=== PATIENT | female | born 1965 | race African-American/Black ===

== ENCOUNTER 2016-09-10 15:56 | Emergency (ER) | payer OTHER ==
[~2016-09-10] VITALS: Ht 170.2 cm; Wt 81.0 kg
[~2016-09-10 15:56] MED LIST: ALBUTEROL; AZITHROMYCIN; CARISOPRODOL; COR25; DIGL; FURO-152 PO; FUROSEMIDE; GABA-531; GABAPENTIN; HYDROCODONE; LEVO500T15 PO; LORATIDINE; POTA20TA82 PO; PROAIR; Q-TUSSIN; TRAM50TA3; WARF5TAB76; ZOLP10TA2; benazepril PO
[2016-09-10] MEDS ORDERED: SPIR25TA4 PO (16:12)
[2016-09-10] MEDS ORDERED: OPSUMIT (16:12)
[2016-09-10] MEDS ORDERED: LOSA25TA12 PO (16:12)
[2016-09-10] MEDS ORDERED: METOLAZONE (16:12)
[2016-09-10] MEDS ORDERED: BANOPHEN (16:12)
[2016-09-10 21:54] LABS: BASOPHILS % 0.6 % (0.0-2.0); EOSINOPHILS % 3.5 % (0.0-5.0); HEMATOCRIT. 32.3 % (36.0-48.0); HEMOGLOBIN. 10.6 g/dL (12.0-16.0); LYMPHOCYTES % 38.7 % (20.0-50.0); MEAN CORPUSCULAR HEMOGLOBIN 28.2 pg (28.0-32.0); MEAN CORPUSCULAR VOLUME 85.4 fL (81.0-99.0); MEAN PLATELET VOLUME 9.8 fl (7.4-10.4); MONOCYTES % 10.8 % (2.0-8.0); NEUTROPHILS % 46.4 % (40.0-76.0); PLATELET 112 x1000/uL (130-400); RED BLOOD CELL COUNT 3.78 mill/uL (4.2-5.4); RED CELL DISTRIBUTION WIDTH 14.3 % (11.6-14.6)
[2016-09-10 22:06] LABS: PARTIAL THROMBOPLASTIN TIME 45.1 sec (24.0-34.0); PROTHROMBIN TIME 50.7 sec
[2016-09-10 22:12] LABS: INR 4.8
[2016-09-11] MEDS ORDERED: HYDROCODONE/ACETAMINOPHEN 5/325MG TABLET PO ONE (00:45)
[2016-09-11 01:02] VITALS: BP 129/69
== END 2016-09-11 01:21 | disposition home or self-care (01) ==
LOC: ER 22:55
DX: M25.562 Pain in left knee (principal); Z95.0 Presence of cardiac pacemaker
CPT/HCPCS: 36415; 73562; 85025; 85610; 85730; 93971; 99285

== ENCOUNTER 2018-07-30 10:51 | Inpatient (IN) | payer OTHER ==
[~2018-07-30] VITALS: Ht 170.2 cm; Wt 84.4 kg
[~2018-07-30 10:51] MED LIST changes: +BANOPHEN; -LEVO500T15 PO; +LEVO500T2 PO; +LOSA25TA12 PO; +METOLAZONE; +OPSUMIT; +SPIR25TA6 PO
[2018-07-30] MEDS ORDERED: IPRATROPIUM BROMIDE (0.02%) 0.5MG/2.5ML NEB HHN STA (11:12)
[2018-07-30] MEDS ORDERED: METHYLPREDNISOLONE SOD SUCC 125 MG/2 ML VIAL IV STA (11:12)
[2018-07-30] MEDS ORDERED: ALBUTEROL (0.083%) 2.5MG/3ML NEB HHN STA (11:12)
[2018-07-30] MEDS ORDERED: MAGNESIUM 2 G PREMIX 50 ML IV ONE (11:15)
[2018-07-30 11:39] LABS: BASOPHILS % 0.7 % (0.0-2.0); HEMATOCRIT. 34.5 % (36.0-48.0); HEMOGLOBIN. 11.3 g/dL (12.0-16.0); MEAN CORPUSCULAR HEMOGLOBIN 28.5 pg (28.0-32.0); MEAN CORPUSCULAR VOLUME 87.1 fL (81.0-99.0); MEAN PLATELET VOLUME 9.9 fl (7.4-10.4); MONOCYTES % 12.9 % (2.0-8.0); NEUTROPHILS % 63.4 % (40.0-76.0); PLATELET 97 x1000/uL (130-400); RED BLOOD CELL COUNT 3.96 mill/uL (4.2-5.4); RED CELL DISTRIBUTION WIDTH 14.9 % (11.6-14.6)
[2018-07-30 11:44] LABS: CHLORIDE 105 mEq/L (98-107); PROTHROMBIN TIME 29.3 sec (9.6-11.0)
[2018-07-30] MEDS ORDERED: IPRATROPIUM/ALBUTEROL 0.5-3(2.5)MG/3ML NEB HHN PRN ×2 (13:00→13:30)
[2018-07-30] MEDS ORDERED: ONDANSETRON HCL 4MG/2ML INJ IV PRN (13:00)
[2018-07-30] MEDS ORDERED: FUROSEMIDE 20MG/2ML VIAL IVP ONE (13:00)
[2018-07-30] MEDS ORDERED: ACETAMINOPHEN 325MG TABLET PO PRN (13:00)
[2018-07-30] MEDS ORDERED: BUDESONIDE 0.5MG/2ML NEB HHN SCH (13:00)
[2018-07-30 14:36] LABS: CLARITY URINE CLEAR (CLEAR); COLOR URINE YELLOW (YELLOW); KETONES URINE TRACE (NEGATIVE); LEUKOCYTE ESTERASE URINE TRACE (NEGATIVE); NITRITE URINE NEGATIVE (NEGATIVE); OCCULT BLOOD URINE NEGATIVE (NEGATIVE); PROTEIN URINE TRACE (NEGATIVE); SPECIFIC GRAVITY URINE 1.018 (1.005-1.030)
[2018-07-30 15:07] LABS: *AMPHETAMINES SCREEN URINE NEGATIVE (NEGATIVE); *BARBITURATES SCREEN URINE NEGATIVE (NEGATIVE)
[2018-07-30 15:08] LABS: *BENZODIAZEPINES SCREEN URINE NEGATIVE (NEGATIVE); *COCAINE SCREEN URINE NEGATIVE (NEGATIVE); CANNABINOID URINE SCREEN NEGATIVE (NEGATIVE); METHADONE URINE SCREEN NEGATIVE (NEGATIVE); OPIATES URINE SCREEN NEGATIVE (NEGATIVE); PHENCYCLIDINE URINE SCREEN NEGATIVE (NEGATIVE)
[2018-07-30 16:45] VITALS: BP 130/61
[2018-07-30] MEDS ORDERED: HYDR-4009 PO (16:50)
[2018-07-30] MEDS ORDERED: MACI10TA2 PO (16:50)
[2018-07-30] MEDS ORDERED: METO5TAB69 PO (16:50)
[2018-07-30] MEDS ORDERED: ALBU18HF2 IH (16:52)
[2018-07-30] MEDS ORDERED: FUROSEMIDE 40MG/4ML VIAL IVP SCH (17:00)
[2018-07-30] MEDS ORDERED: CARV25TA47 PO (17:03)
[2018-07-30] MEDS ORDERED: DICL100G31 TP (17:03)
[2018-07-30] MEDS ORDERED: DIGO125T82 PO (17:03)
[2018-07-30] MEDS: GUAIFENESIN-DM 200MG-20MG/10ML UDC PO PRN (18:06)
[2018-07-30] MEDS: MONTELUKAST SODIUM 10MG TABLET PO SCH (18:06)
[2018-07-30] MEDS: FAMOTIDINE 20MG/2ML VIAL IV SCH (18:07)
[2018-07-30] MEDS: LORATADINE 10MG TABLET PO SCH (18:07)
[2018-07-30] MEDS: IPRATROPIUM/ALBUTEROL 0.5-3(2.5)MG/3ML NEB HHN SCH (20:21)
[2018-07-30 20:30] VITALS: BP 107/53
[2018-07-30] MEDS ORDERED: WARFARIN SODIUM 3MG TABLET PO NR (20:44)
[2018-07-30] MEDS: METHYLPREDNISOLONE SOD SUCC 40 MG/ML VIAL IV SCH (20:51)
[2018-07-31 01:00] VITALS: BP 114/49
[2018-07-31] MEDS: GUAIFENESIN-DM 200MG-20MG/10ML UDC PO PRN ×2 (01:20→20:28)
[2018-07-31] MEDS: IPRATROPIUM/ALBUTEROL 0.5-3(2.5)MG/3ML NEB HHN SCH ×6 (01:44→21:52)
[2018-07-31 05:00] VITALS: BP 105/47
[2018-07-31] MEDS: METHYLPREDNISOLONE SOD SUCC 40 MG/ML VIAL IV SCH ×3 (05:10→20:28)
[2018-07-31] MEDS: ACETYLCYSTEINE 100MG/ML 10% VIAL 4ML INH SCH ×3 (05:53→16:46)
[2018-07-31 06:40] LABS: INR 3.5; PROTHROMBIN TIME 34.2 sec (9.6-11.0)
[2018-07-31 06:53] LABS: HEMATOCRIT. 34.9 % (36.0-48.0); HEMOGLOBIN. 11.5 g/dL (12.0-16.0); MEAN CORPUSCULAR HEMOGLOBIN 28.5 pg (28.0-32.0); MEAN CORPUSCULAR VOLUME 86.6 fL (81.0-99.0); MEAN PLATELET VOLUME 10.4 fl (7.4-10.4); PLATELET 103 x1000/uL (130-400); RED BLOOD CELL COUNT 4.03 mill/uL (4.2-5.4); RED CELL DISTRIBUTION WIDTH 14.8 % (11.6-14.6)
[2018-07-31 08:00] VITALS: BP 102/47
[2018-07-31] MEDS: FAMOTIDINE 20MG/2ML VIAL IV SCH (09:00)
[2018-07-31] MEDS: LORATADINE 10MG TABLET PO SCH (09:00)
[2018-07-31] MEDS: LOSARTAN POTASSIUM 25 MG TABLET PO SCH (09:00)
[2018-07-31 12:00] VITALS: BP 107/51
[2018-07-31] MEDS ORDERED: MACITENTAN 10 MG PO SCH (14:00)
[2018-07-31] MEDS: AZITHROMYCIN 500 MG TABLET PO SCH (14:58)
[2018-07-31] MEDS: SPIRONOLACTONE 25MG TABLET PO SCH (14:58)
[2018-07-31 16:00] VITALS: BP 111/54
[2018-07-31] MEDS ORDERED: MEDICATION NOT ON FORMULARY EA (Diclofenac Sodium 100 GM) TP SCH (17:00)
[2018-07-31] MEDS: MONTELUKAST SODIUM 10MG TABLET PO SCH (17:22)
[2018-07-31] MEDS: DIGOXIN 125MCG TABLET PO SCH (17:22)
[2018-07-31] MEDS ORDERED: WARFARIN SODIUM 7.5MG TABLET PO SCH (18:00)
[2018-07-31] MEDS ORDERED: DIPHENHYDRAMINE 50MG/ML VIAL IV NR (18:16)
[2018-07-31 18:21] LABS: PLATELET ESTIMATE DECREASED
[2018-07-31] MEDS ORDERED: DIPHENHYDRAMINE 50MG CAPSULE PO PRN (18:30)
[2018-07-31 19:44] VITALS: BP 110/53
[2018-08-01] VITALS: BP 112/55
[2018-08-01] MEDS: ACETYLCYSTEINE 100MG/ML 10% VIAL 4ML INH SCH ×3 (01:18→16:52)
[2018-08-01] MEDS: IPRATROPIUM/ALBUTEROL 0.5-3(2.5)MG/3ML NEB HHN SCH ×6 (01:18→21:14)
[2018-08-01 04:00] VITALS: BP 122/60
[2018-08-01 06:15] LABS: HEMATOCRIT. 33.4 % (36.0-48.0); MEAN CORPUSCULAR HEMOGLOBIN 28.6 pg (28.0-32.0); MEAN CORPUSCULAR VOLUME 86.6 fL (81.0-99.0); MEAN PLATELET VOLUME 10.4 fl (7.4-10.4); PLATELET 100 x1000/uL (130-400); RED BLOOD CELL COUNT 3.85 mill/uL (4.2-5.4); RED CELL DISTRIBUTION WIDTH 14.4 % (11.6-14.6)
[2018-08-01 06:28] LABS: PROTHROMBIN TIME 50.7 sec (9.6-11.0)
[2018-08-01 06:42] LABS: INR 5.3
[2018-08-01] MEDS: METHYLPREDNISOLONE SOD SUCC 40 MG/ML VIAL IV SCH ×2 (06:58→14:27)
[2018-08-01 07:15] LABS: DIGOXIN 0.8 ng/mL (0.9-2.0)
[2018-08-01 08:00] VITALS: BP 103/51
[2018-08-01] MEDS: FAMOTIDINE 20MG/2ML VIAL IV SCH (08:14)
[2018-08-01] MEDS: AZITHROMYCIN 500 MG TABLET PO SCH (08:14)
[2018-08-01] MEDS: SPIRONOLACTONE 25MG TABLET PO SCH (08:14)
[2018-08-01] MEDS: GUAIFENESIN-DM 200MG-20MG/10ML UDC PO PRN ×2 (08:14→22:22)
[2018-08-01] MEDS: LORATADINE 10MG TABLET PO SCH (08:14)
[2018-08-01] MEDS: LOSARTAN POTASSIUM 25 MG TABLET PO SCH (08:15)
[2018-08-01 10:40] LABS: PLATELET ESTIMATE DECREASED
[2018-08-01] MEDS: POTASSIUM CHLORIDE 20MEQ TABLET SR PO SCH (11:45)
[2018-08-01] MEDS: FUROSEMIDE 40MG/4ML VIAL IVP SCH (11:46)
[2018-08-01 12:00] VITALS: BP 124/68
[2018-08-01] MEDS: DIGOXIN 125MCG TABLET PO SCH (17:46)
[2018-08-01 20:00] VITALS: BP 120/60
[2018-08-02] VITALS: BP 116/56
[2018-08-02] MEDS: ACETYLCYSTEINE 100MG/ML 10% VIAL 4ML INH SCH ×2 (00:36→15:20)
[2018-08-02] MEDS: IPRATROPIUM/ALBUTEROL 0.5-3(2.5)MG/3ML NEB HHN SCH ×5 (00:36→15:20)
[2018-08-02 04:00] VITALS: BP 124/51
[2018-08-02 07:37] LABS: PROTHROMBIN TIME 50.9 sec (9.6-11.0)
[2018-08-02 07:38] LABS: HEMATOCRIT. 32.3 % (36.0-48.0); HEMOGLOBIN. 10.9 g/dL (12.0-16.0); MEAN CORPUSCULAR HEMOGLOBIN 28.8 pg (28.0-32.0); MEAN CORPUSCULAR VOLUME 85.5 fL (81.0-99.0); MEAN PLATELET VOLUME 10.5 fl (7.4-10.4); PLATELET 106 x1000/uL (130-400); RED BLOOD CELL COUNT 3.78 mill/uL (4.2-5.4); RED CELL DISTRIBUTION WIDTH 14.5 % (11.6-14.6)
[2018-08-02 07:45] LABS: INR 5.3
[2018-08-02 08:00] VITALS: BP 129/59
[2018-08-02] MEDS ORDERED: PREDNISONE 20MG TABLET PO SCH (09:00)
[2018-08-02] MEDS ORDERED: BUDESONIDE 0.5MG/2ML NEB HHN SCH (10:00)
[2018-08-02] MEDS: GUAIFENESIN-DM 200MG-20MG/10ML UDC PO PRN ×2 (10:35→18:07)
[2018-08-02] MEDS: FAMOTIDINE 20MG/2ML VIAL IV SCH (10:39)
[2018-08-02] MEDS: AZITHROMYCIN 500 MG TABLET PO SCH (10:39)
[2018-08-02] MEDS: POTASSIUM CHLORIDE 20MEQ TABLET SR PO SCH (10:39)
[2018-08-02] MEDS: FUROSEMIDE 40MG/4ML VIAL IVP SCH (10:41)
[2018-08-02] MEDS: SPIRONOLACTONE 25MG TABLET PO SCH (10:41)
[2018-08-02] MEDS: LOSARTAN POTASSIUM 25 MG TABLET PO SCH (10:43)
[2018-08-02] MEDS: LORATADINE 10MG TABLET PO SCH (10:43)
[2018-08-02 12:00] VITALS: BP 114/55
[2018-08-02 14:01] VITALS: BP 114/55
[2018-08-02 16:00] VITALS: BP 123/63
[2018-08-02] MEDS: DIGOXIN 125MCG TABLET PO SCH (18:07)
[2018-08-02 19:23] LABS: PLATELET ESTIMATE DECREASED
== END 2018-08-02 20:16 | disposition home or self-care (01) | DRG 133 ==
LOC: ER 10:51 → 7WST 12:41 → EDBEDREQTM 12:45 → EDBEDREQ 12:45 → ENRESERV 13:07
PROVIDERS: ADMIT Internal Medicine; ATTEND Internal Medicine
DX: J96.00 Acute respiratory failure, unspecified whether with hypoxia or hypercapnia (principal); I50.23 Acute on chronic systolic (congestive) heart failure; D69.6 Thrombocytopenia, unspecified; D68.9 Coagulation defect, unspecified; I42.9 Cardiomyopathy, unspecified; I27.20 Pulmonary hypertension, unspecified; I11.0 Hypertensive heart disease with heart failure; J45.901 Unspecified asthma with (acute) exacerbation; D64.9 Anemia, unspecified; I48.91 Unspecified atrial fibrillation; K76.0 Fatty (change of) liver, not elsewhere classified; Z95.1 Presence of aortocoronary bypass graft; Z95.2 Presence of prosthetic heart valve; Z95.810 Presence of automatic (implantable) cardiac defibrillator
CPT/HCPCS: 36415; 71045; 76700; 80048; 80162; 80305; 83605; 83880; 84145; 84484; 87070; 87804; 93005; 93306; 93970; 94640; 99285; J1200; J1940; J2920; J2930; J3475; J3490; J7512; J7608; J7611; J7620; J7626

== ENCOUNTER 2018-10-18 08:33 | Inpatient (IN) | payer OTHER ==
[~2018-10-18] VITALS: Ht 170.2 cm; Wt 87.3 kg
[~2018-10-18 08:33] MED LIST changes: +ALBU18HF2 IH; -ALBUTEROL; -AZITHROMYCIN; -BANOPHEN; -CARISOPRODOL; +CARV25TA47 PO; -COR25; +DICL100G31 TP; -DIGL; +DIGO125T82 PO; -FUROSEMIDE; -GABA-531; -GABAPENTIN; +HYDR-4009 PO; -HYDROCODONE; -LEVO500T2 PO; -LORATIDINE; -LOSA25TA12 PO; +LOSA25TA26 PO; +MACI10TA2 PO; +METO5TAB69 PO; -METOLAZONE; -OPSUMIT; -PROAIR; -Q-TUSSIN; -TRAM50TA3; -ZOLP10TA2; -benazepril PO
[2018-10-18 09:33] LABS: BASOPHILS % 0.6 % (0.0-2.0); EOSINOPHILS % 1.8 % (0.0-5.0); HEMATOCRIT. 31.8 % (36.0-48.0); HEMOGLOBIN. 10.5 g/dL (12.0-16.0); LYMPHOCYTES % 26.4 % (20.0-50.0); MEAN CORPUSCULAR HEMOGLOBIN 28.4 pg (28.0-32.0); MEAN CORPUSCULAR VOLUME 85.7 fL (81.0-99.0); MEAN PLATELET VOLUME 10.2 fl (7.4-10.4); MONOCYTES % 10.8 % (2.0-8.0); NEUTROPHILS % 60.4 % (40.0-76.0); PLATELET 104 x1000/uL (130-400); RED CELL DISTRIBUTION WIDTH 15.1 % (11.6-14.6)
[2018-10-18 09:34] LABS: CHLORIDE 104 mEq/L (98-107)
[2018-10-18] MEDS ORDERED: MAGNESIUM/ALUMINUM HYDROXIDE/SIMETHICONE 30ML UDC PO PRN (10:30)
[2018-10-18] MEDS ORDERED: DOCUSATE SODIUM 100MG CAPSULE PO PRN (10:30)
[2018-10-18] MEDS ORDERED: GUAIFENESIN 200MG/10ML SUGAR FREE UDC PO PRN (10:30)
[2018-10-18] MEDS ORDERED: IPRATROPIUM/ALBUTEROL 0.5-3(2.5)MG/3ML NEB INH PRN (10:30)
[2018-10-18] MEDS ORDERED: ENOXAPARIN 40MG/0.4ML SYR SUBCUT SCH (10:30)
[2018-10-18] MEDS ORDERED: DIPHENHYDRAMINE 50MG/ML VIAL IV PRN (10:30)
[2018-10-18] MEDS ORDERED: HYDROCODONE/ACETAMINOPHEN 5/325MG TABLET PO PRN (10:30)
[2018-10-18] MEDS ORDERED: CLONIDINE 0.1MG TABLET PO PRN (10:30)
[2018-10-18] MEDS ORDERED: ONDANSETRON HCL 4MG/2ML INJ IV PRN (10:30)
[2018-10-18] MEDS ORDERED: ENOXAPARIN 40MG/0.4ML SYR SUBCUT NR (11:00)
[2018-10-18 11:11] LABS: INR 2.8; PROTHROMBIN TIME 27.3 sec (9.6-11.0)
[2018-10-18 11:15] LABS: PHOSPHORUS 3.1 mg/dL (2.5-4.9)
[2018-10-18 13:44] VITALS: BP 121/58
[2018-10-18 14:00] VITALS: BP 121/58
[2018-10-18] MEDS ORDERED: PNV1TABL50 MT (15:47)
[2018-10-18 16:30] VITALS: BP 107/42
[2018-10-18] MEDS: POTASSIUM CHLORIDE 20MEQ TABLET SR PO SCH (17:16)
[2018-10-18] MEDS: ACETAMINOPHEN 325MG TABLET PO PRN (17:17)
[2018-10-18] MEDS ORDERED: WARFARIN SODIUM 2MG TABLET PO SCH (18:00)
[2018-10-18] MEDS ORDERED: WARFARIN SODIUM 5MG TABLET PO SCH (18:00)
[2018-10-18 20:00] VITALS: BP 101/45
[2018-10-18] MEDS: CARVEDILOL 12.5MG TABLET PO SCH (21:00)
[2018-10-18 21:27] LABS: CREATINE KINASE MB FRACTION 1.6 ng/mL (0.5-3.6)
[2018-10-18 21:46] LABS: DIGOXIN 0.9 ng/mL (0.9-2.0)
[2018-10-19] VITALS: BP 104/50
[2018-10-19 04:00] VITALS: BP 113/46
[2018-10-19 09:00] LABS: INR 2.7; PROTHROMBIN TIME 26.4 sec (9.6-11.0)
[2018-10-19] MEDS: LOSARTAN POTASSIUM 25 MG TABLET PO SCH (09:00)
[2018-10-19] MEDS: CARVEDILOL 12.5MG TABLET PO SCH ×2 (09:00→21:15)
[2018-10-19] MEDS ORDERED: ENOXAPARIN 40MG/0.4ML SYR SUBCUT SCH ×2 (09:00)
[2018-10-19 09:02] LABS: BASOPHILS % 0.7 % (0.0-2.0); EOSINOPHILS % 2.6 % (0.0-5.0); HEMOGLOBIN. 10.2 g/dL (12.0-16.0); LYMPHOCYTES % 30.4 % (20.0-50.0); MEAN CORPUSCULAR HEMOGLOBIN 28.3 pg (28.0-32.0); MONOCYTES % 13.5 % (2.0-8.0); NEUTROPHILS % 52.8 % (40.0-76.0); PLATELET 99 x1000/uL (130-400); RED BLOOD CELL COUNT 3.61 mill/uL (4.2-5.4); RED CELL DISTRIBUTION WIDTH 14.9 % (11.6-14.6)
[2018-10-19 09:03] LABS: CHLORIDE 106 mEq/L (98-107)
[2018-10-19 09:14] LABS: LDL CHOLESTEROL 72 mg/dL (5-100)
[2018-10-19 09:15] LABS: CREATINE KINASE 91 IU/L (26-192); CREATINE KINASE MB FRACTION < 1.0 ng/mL (0.5-3.6)
[2018-10-19 09:17] LABS: HDL CHOLESTEROL 61 mg/dL (40-59)
[2018-10-19] MEDS: SPIRONOLACTONE 25MG TABLET PO SCH (09:33)
[2018-10-19] MEDS: POTASSIUM CHLORIDE 20MEQ TABLET SR PO SCH (09:33)
[2018-10-19] MEDS ORDERED: WARFARIN SODIUM 5MG TABLET PO SCH (18:00)
[2018-10-19] MEDS ORDERED: WARFARIN SODIUM 2MG TABLET PO SCH (18:00)
[2018-10-19 20:00] VITALS: BP 117/62
[2018-10-19] MEDS: SOTALOL HCL 80MG TABLET PO SCH (21:14)
[2018-10-20] VITALS (7 sets, daily range): BP systolic 101–118; BP diastolic 48–62
[2018-10-20] MEDS: ACETAMINOPHEN 325MG TABLET PO PRN ×2 (03:26→11:31)
[2018-10-20 07:59] LABS: INR 2.6; PROTHROMBIN TIME 25.4 sec (9.6-11.0)
[2018-10-20] MEDS: CARVEDILOL 12.5MG TABLET PO SCH ×2 (09:08→21:17)
[2018-10-20] MEDS: POTASSIUM CHLORIDE 20MEQ TABLET SR PO SCH (09:08)
[2018-10-20] MEDS: SPIRONOLACTONE 25MG TABLET PO SCH (09:08)
[2018-10-20] MEDS: SOTALOL HCL 80MG TABLET PO SCH ×2 (09:09→21:17)
[2018-10-20] MEDS: LOSARTAN POTASSIUM 25 MG TABLET PO SCH (09:09)
[2018-10-20] MEDS ORDERED: WARFARIN SODIUM 5MG TABLET PO SCH (18:00)
[2018-10-20] MEDS ORDERED: WARFARIN SODIUM 2MG TABLET PO SCH (18:00)
[2018-10-21] VITALS: BP 111/62
[2018-10-21 04:00] VITALS: BP 122/59
[2018-10-21 07:54] LABS: INR 2.5; PROTHROMBIN TIME 24.8 sec (9.6-11.0)
[2018-10-21 08:00] VITALS: BP 106/53
[2018-10-21 08:00] LABS: BASOPHILS % 0.3 % (0.0-2.0); EOSINOPHILS % 2.5 % (0.0-5.0); HEMATOCRIT. 29.7 % (36.0-48.0); HEMOGLOBIN. 9.9 g/dL (12.0-16.0); MEAN CORPUSCULAR HEMOGLOBIN 28.6 pg (28.0-32.0); MEAN CORPUSCULAR VOLUME 85.5 fL (81.0-99.0); MEAN PLATELET VOLUME 10.3 fl (7.4-10.4); MONOCYTES % 13.2 % (2.0-8.0); PLATELET 91 x1000/uL (130-400); RED BLOOD CELL COUNT 3.47 mill/uL (4.2-5.4); RED CELL DISTRIBUTION WIDTH 14.9 % (11.6-14.6)
[2018-10-21 08:23] LABS: CHLORIDE 105 mEq/L (98-107)
[2018-10-21] MEDS: CARVEDILOL 12.5MG TABLET PO SCH ×2 (09:00→21:34)
[2018-10-21] MEDS: LOSARTAN POTASSIUM 25 MG TABLET PO SCH (09:00)
[2018-10-21] MEDS: SPIRONOLACTONE 25MG TABLET PO SCH (09:59)
[2018-10-21] MEDS: POTASSIUM CHLORIDE 20MEQ TABLET SR PO SCH (09:59)
[2018-10-21] MEDS: SOTALOL HCL 80MG TABLET PO SCH ×2 (10:01→21:34)
[2018-10-21 12:00] VITALS: BP 116/65
[2018-10-21] MEDS ORDERED: ACET-2708 PO (14:14)
[2018-10-21] MEDS ORDERED: CALC-1098 PO (14:14)
[2018-10-21] MEDS ORDERED: ASCO500C15 PO (14:14)
[2018-10-21] MEDS ORDERED: WARF7.5T22 PO (14:15)
[2018-10-21 16:00] VITALS: BP 114/54
[2018-10-21] MEDS ORDERED: WARFARIN SODIUM 3MG TABLET PO SCH (18:00)
[2018-10-21 22:00] VITALS: BP 120/75
[2018-10-22 08:00] VITALS: BP 143/56
[2018-10-22] MEDS: CARVEDILOL 12.5MG TABLET PO SCH ×2 (08:24→21:15)
[2018-10-22] MEDS: SOTALOL HCL 80MG TABLET PO SCH ×2 (08:24→21:15)
[2018-10-22] MEDS: SPIRONOLACTONE 25MG TABLET PO SCH (08:25)
[2018-10-22] MEDS: LOSARTAN POTASSIUM 25 MG TABLET PO SCH (08:25)
[2018-10-22] MEDS: POTASSIUM CHLORIDE 20MEQ TABLET SR PO SCH (08:25)
[2018-10-22 09:35] LABS: BASOPHILS % 0.4 % (0.0-2.0); EOSINOPHILS % 2.2 % (0.0-5.0); HEMATOCRIT. 31.2 % (36.0-48.0); HEMOGLOBIN. 10.4 g/dL (12.0-16.0); LYMPHOCYTES % 24.4 % (20.0-50.0); MEAN CORPUSCULAR HEMOGLOBIN 28.7 pg (28.0-32.0); MEAN CORPUSCULAR VOLUME 85.9 fL (81.0-99.0); MEAN PLATELET VOLUME 10.5 fl (7.4-10.4); MONOCYTES % 12.2 % (2.0-8.0); NEUTROPHILS % 60.8 % (40.0-76.0); PLATELET 90 x1000/uL (130-400); RED BLOOD CELL COUNT 3.63 mill/uL (4.2-5.4); RED CELL DISTRIBUTION WIDTH 14.9 % (11.6-14.6)
[2018-10-22 09:52] LABS: INR 2.3; PROTHROMBIN TIME 23.1 sec (9.6-11.0)
[2018-10-22 10:02] LABS: CHLORIDE 105 mEq/L (98-107)
[2018-10-22 12:00] VITALS: BP 111/60
[2018-10-22 16:00] VITALS: BP 106/53
[2018-10-22] MEDS ORDERED: WARFARIN SODIUM 3MG TABLET PO SCH (18:00)
[2018-10-22 20:00] VITALS: BP 119/56
[2018-10-22 22:10] VITALS: BP 119/56
== END 2018-10-22 22:55 | disposition home or self-care (01) | DRG 201 ==
LOC: ER 08:33 → 5WST 10:19 → ENRESERV 11:09
PROVIDERS: ADMIT Internal Medicine; ATTEND Internal Medicine
PROC: 4B02XTZ Measurement of Cardiac Defibrillator, External Approach (ICD-10-PCS; principal; 2018-10-18)
DX: I47.2 Ventricular tachycardia (principal); I49.01 Ventricular fibrillation; I27.20 Pulmonary hypertension, unspecified; I48.1 Persistent atrial fibrillation; I11.0 Hypertensive heart disease with heart failure; I50.30 Unspecified diastolic (congestive) heart failure; I42.0 Dilated cardiomyopathy; J45.909 Unspecified asthma, uncomplicated; I05.9 Rheumatic mitral valve disease, unspecified; Z79.01 Long term (current) use of anticoagulants; Z88.8 Allergy status to other drugs, medicaments and biological substances; Z95.1 Presence of aortocoronary bypass graft; Z95.2 Presence of prosthetic heart valve; Z95.810 Presence of automatic (implantable) cardiac defibrillator; Z79.899 Other long term (current) drug therapy; Z82.49 Family history of ischemic heart disease and other diseases of the circulatory system
CPT/HCPCS: 36415; 71045; 80048; 80061; 80162; 82550; 82553; 83735; 83880; 84100; 84443; 84484; 93005; 93306; 96372; 97162; 97165; 99285; J1650

== ENCOUNTER 2021-03-18 18:35 | Inpatient (IN) | payer OTHER ==
[~2021-03-18] VITALS: Ht 170.2 cm; Wt 93.0 kg
[~2021-03-18 18:35] MED LIST changes: +ASCO500C18 PO; +CALC-1098 PO; -CARV25TA47 PO; +CELE200C PO; +COR6 PO; -DICL100G31 TP; +DIGO125T80 PO; -DIGO125T82 PO; -FURO-152 PO; +FURO40TA5 PO; -HYDR-4009 PO; -METO5TAB69 PO; +METO5TAB7 PO; +PANT40TA51 MT; +PNV1TABL50 MT; +PRED10TA PO; +SOTA80TA PO; +WARF4TAB40 PO; -WARF5TAB76
[2021-03-19 00:27] LABS: CHLORIDE 95 mEq/L (98-107)
[2021-03-19 00:35] LABS: BASOPHILS % 0.4 % (0.0-2.0); EOSINOPHILS % 0.7 % (0.0-5.0); HEMATOCRIT. 38.5 % (36.0-48.0); HEMOGLOBIN. 12.4 g/dL (12.0-16.0); LYMPHOCYTES % 36.5 % (20.0-50.0); MEAN CORPUSCULAR HEMOGLOBIN 29.1 pg (28.0-32.0); MEAN CORPUSCULAR VOLUME 90.6 fL (81.0-99.0); MEAN PLATELET VOLUME 10.3 fl (7.4-10.4); MONOCYTES % 11.4 % (2.0-8.0); PLATELET 99 x1000/uL (130-400); RED BLOOD CELL COUNT 4.25 mill/uL (4.2-5.4); RED CELL DISTRIBUTION WIDTH 14.3 % (11.6-14.6)
[2021-03-19] MEDS ORDERED: CARVEDILOL 3.125 MG TABLET PO SCH (09:30)
[2021-03-19] MEDS ORDERED: ONDANSETRON HCL 4MG/2ML INJ IV PRN (09:30)
[2021-03-19] MEDS: FUROSEMIDE 40MG/4ML VIAL IVP SCH ×2 (09:36→17:57)
[2021-03-19] MEDS ORDERED: KETOROLAC 15MG/ML VIAL IV PRN (09:45)
[2021-03-19 11:00] VITALS: BP 129/59
[2021-03-19] MEDS ORDERED: SACU1TAB MT (13:02)
[2021-03-19] MEDS: IPRATROPIUM/ALBUTEROL 0.5-3(2.5)MG/3ML NEB HHN PRN (13:05)
[2021-03-19] MEDS: AMOXICILLIN 500 MG CAPSULE PO SCH ×2 (14:44→17:57)
[2021-03-19] MEDS: DILTIAZEM HCL 30MG TABLET PO SCH ×3 (14:45→23:21)
[2021-03-19 15:54] LABS: INR 1.5; PROTHROMBIN TIME 15.8 sec (9.6-11.0)
[2021-03-19 16:00] VITALS: BP 113/65
[2021-03-19] MEDS ORDERED: WARFARIN SODIUM 7.5MG TABLET PO NR (18:30)
[2021-03-19 20:00] VITALS: BP 109/58
[2021-03-19] MEDS: ACETAMINOPHEN 325MG TABLET PO PRN (23:20)
[2021-03-20] VITALS: BP 95/45
[2021-03-20 04:00] VITALS: BP 100/51
[2021-03-20] MEDS: DILTIAZEM HCL 30MG TABLET PO SCH ×3 (06:00→17:42)
[2021-03-20] MEDS: FUROSEMIDE 40MG/4ML VIAL IVP SCH ×2 (07:15→17:42)
[2021-03-20 07:46] LABS: BASOPHILS % 0.4 % (0.0-2.0); EOSINOPHILS % 1.2 % (0.0-5.0); HEMATOCRIT. 37.8 % (36.0-48.0); HEMOGLOBIN. 12.3 g/dL (12.0-16.0); LYMPHOCYTES % 31.8 % (20.0-50.0); MEAN CORPUSCULAR HEMOGLOBIN 29.5 pg (28.0-32.0); MEAN CORPUSCULAR VOLUME 90.5 fL (81.0-99.0); MEAN PLATELET VOLUME 10.6 fl (7.4-10.4); MONOCYTES % 10.6 % (2.0-8.0); PLATELET 90 x1000/uL (130-400); RED BLOOD CELL COUNT 4.17 mill/uL (4.2-5.4); RED CELL DISTRIBUTION WIDTH 14.2 % (11.6-14.6)
[2021-03-20 07:53] LABS: INR 1.3; PROTHROMBIN TIME 13.8 sec (9.6-11.0)
[2021-03-20 08:00] VITALS: BP 109/50
[2021-03-20 12:00] VITALS: BP 115/52
[2021-03-20] MEDS: AMOXICILLIN 500 MG CAPSULE PO SCH ×2 (12:20→17:50)
[2021-03-20] MEDS: KETOROLAC 30MG/ML VIAL IV PRN ×2 (12:22→22:24)
[2021-03-20] MEDS: ENOXAPARIN 100MG/ML SYR SUBCUT SCH ×2 (12:36→22:08)
[2021-03-20 16:00] VITALS: BP 106/58
[2021-03-20] MEDS ORDERED: WARFARIN SODIUM 7.5MG TABLET PO SCH (18:00)
[2021-03-20 20:00] VITALS: BP 100/51
[2021-03-20] MEDS: IPRATROPIUM/ALBUTEROL 0.5-3(2.5)MG/3ML NEB HHN PRN (20:04)
[2021-03-21] VITALS: BP 84/43
[2021-03-21 04:00] VITALS: BP 79/37
[2021-03-21] MEDS: DILTIAZEM HCL 30MG TABLET PO SCH ×2 (05:05)
[2021-03-21 05:17] VITALS: BP 86/42
[2021-03-21 07:13] LABS: BASOPHILS % 0.3 % (0.0-2.0); EOSINOPHILS % 1.2 % (0.0-5.0); HEMATOCRIT. 36.5 % (36.0-48.0); HEMOGLOBIN. 11.8 g/dL (12.0-16.0); MEAN CORPUSCULAR HEMOGLOBIN 29.1 pg (28.0-32.0); MEAN CORPUSCULAR VOLUME 90.1 fL (81.0-99.0); MEAN PLATELET VOLUME 10.8 fl (7.4-10.4); MONOCYTES % 14.3 % (2.0-8.0); NEUTROPHILS % 49.2 % (40.0-76.0); PLATELET 86 x1000/uL (130-400); RED BLOOD CELL COUNT 4.05 mill/uL (4.2-5.4); RED CELL DISTRIBUTION WIDTH 14.2 % (11.6-14.6)
[2021-03-21] MEDS: FUROSEMIDE 40MG/4ML VIAL IVP SCH ×2 (07:15→17:15)
[2021-03-21 07:26] LABS: INR 1.5
[2021-03-21 08:00] VITALS: BP 92/49
[2021-03-21] MEDS: ENOXAPARIN 100MG/ML SYR SUBCUT SCH (08:53)
[2021-03-21] MEDS: AMOXICILLIN 500 MG CAPSULE PO SCH ×2 (08:56→17:14)
[2021-03-21] MEDS: OPSUMIT 10 MG PO SCH (08:56)
[2021-03-21] MEDS: ENTRESTO PO SCH ×2 (08:57→21:42)
[2021-03-21] MEDS ORDERED: POTASSIUM CHLORIDE 20MEQ TABLET SR PO SCH (10:00)
[2021-03-21 12:00] VITALS: BP 92/49
[2021-03-21] MEDS: WARFARIN SODIUM 10MG TABLET PO SCH (17:15)
[2021-03-21] MEDS ORDERED: DIGO125T80 PO (18:37)
[2021-03-21] MEDS ORDERED: FURO40TA5 PO (18:38)
[2021-03-21] MEDS ORDERED: PRED10TA23 PO (18:44)
[2021-03-21] MEDS ORDERED: SOTA80TA PO (18:48)
[2021-03-21] MEDS ORDERED: CALC-1042 PO (18:50)
[2021-03-21] MEDS ORDERED: DICL100G31 TP (18:51)
[2021-03-21] MEDS ORDERED: GABA-532 PO (18:53)
[2021-03-21] MEDS ORDERED: ERGO1250 PO (18:58)
[2021-03-21] MEDS ORDERED: WARF7.5T48 PO (18:59)
[2021-03-21] MEDS ORDERED: DULO60CA64 PO (18:59)
[2021-03-21] MEDS ORDERED: WARF-53 PO (19:00)
[2021-03-21 20:00] VITALS: BP 74/38
[2021-03-22] VITALS: BP 99/45
[2021-03-22 04:00] VITALS: BP 89/49
[2021-03-22] MEDS: FUROSEMIDE 40MG/4ML VIAL IVP SCH (06:31)
[2021-03-22 08:00] VITALS: BP 83/41
[2021-03-22] MEDS: AMOXICILLIN 500 MG CAPSULE PO SCH ×2 (08:30→17:36)
[2021-03-22] MEDS: ENTRESTO PO SCH (08:31)
[2021-03-22] MEDS: OPSUMIT 10 MG PO SCH (08:31)
[2021-03-22] MEDS ORDERED: SOTALOL HCL 80MG TABLET PO SCH (09:00)
[2021-03-22 09:55] LABS: INR 1.8; PROTHROMBIN TIME 18.5 sec (9.6-11.0)
[2021-03-22 10:03] LABS: BASOPHILS % 0.6 % (0.0-2.0); EOSINOPHILS % 1.5 % (0.0-5.0); HEMATOCRIT. 36.9 % (36.0-48.0); HEMOGLOBIN. 11.7 g/dL (12.0-16.0); LYMPHOCYTES % 34.9 % (20.0-50.0); MEAN CORPUSCULAR HEMOGLOBIN 28.5 pg (28.0-32.0); MEAN CORPUSCULAR VOLUME 89.6 fL (81.0-99.0); MEAN PLATELET VOLUME 10.7 fl (7.4-10.4); MONOCYTES % 12.6 % (2.0-8.0); NEUTROPHILS % 50.4 % (40.0-76.0); PLATELET 85 x1000/uL (130-400); RED BLOOD CELL COUNT 4.12 mill/uL (4.2-5.4); RED CELL DISTRIBUTION WIDTH 14.2 % (11.6-14.6)
[2021-03-22 12:00] VITALS: BP 90/47
[2021-03-22] MEDS: SODIUM CHLORIDE 0.9% 1,000 ML IV SCH ×2 (13:01→23:49)
[2021-03-22 16:00] VITALS: BP 93/45
[2021-03-22] MEDS: WARFARIN SODIUM 10MG TABLET PO SCH (17:36)
[2021-03-22 20:00] VITALS: BP 85/50
[2021-03-22] MEDS: ACETAMINOPHEN 325MG TABLET PO PRN (20:27)
[2021-03-23] VITALS: BP 94/45
[2021-03-23 04:00] VITALS: BP 103/53
[2021-03-23 08:00] VITALS: BP 107/57
[2021-03-23] MEDS: AMOXICILLIN 500 MG CAPSULE PO SCH (08:19)
[2021-03-23] MEDS: OPSUMIT 10 MG PO SCH (08:21)
[2021-03-23] MEDS ORDERED: FUROSEMIDE 40MG TABLET PO SCH (09:00)
[2021-03-23] MEDS: SODIUM CHLORIDE 0.9% 1,000 ML IV SCH (11:30)
[2021-03-23 11:41] LABS: HEMOGLOBIN. 10.8 g/dL (12.0-16.0); MEAN CORPUSCULAR HEMOGLOBIN 29.2 pg (28.0-32.0); MEAN CORPUSCULAR VOLUME 88.8 fL (81.0-99.0); MEAN PLATELET VOLUME 10.8 fl (7.4-10.4); PLATELET 75 x1000/uL (130-400); RED BLOOD CELL COUNT 3.72 mill/uL (4.2-5.4)
[2021-03-23 11:43] LABS: INR 2.7; PROTHROMBIN TIME 26.4 sec (9.6-11.0)
[2021-03-23 12:00] VITALS: BP 99/52
[2021-03-23] MEDS: ACETAMINOPHEN 325MG TABLET PO PRN (12:01)
[2021-03-23 15:00] VITALS: BP 139/87
[2021-03-23] MEDS ORDERED: WARFARIN SODIUM 7.5MG TABLET PO SCH (18:00)
[2021-03-24 07:49] LABS: PLATELET ESTIMATE DECREASED
== END 2021-03-23 15:58 | disposition home or self-care (01) | DRG 133 ==
LOC: ER 18:35 → MICUSO 23:55 → EDBEDREQTM 23:58 → EDBEDREQ 23:58 → 8WST 03-19 11:28
PROVIDERS: ADMIT Internal Medicine; ATTEND Internal Medicine
DX: J96.20 Acute and chronic respiratory failure, unspecified whether with hypoxia or hypercapnia (principal); I50.23 Acute on chronic systolic (congestive) heart failure; D69.6 Thrombocytopenia, unspecified; I42.9 Cardiomyopathy, unspecified; I48.92 Unspecified atrial flutter; J44.1 Chronic obstructive pulmonary disease with (acute) exacerbation; I11.0 Hypertensive heart disease with heart failure; J02.0 Streptococcal pharyngitis; Z20.822 Contact with and (suspected) exposure to COVID-19; E66.9 Obesity, unspecified; E87.8 Other disorders of electrolyte and fluid balance, not elsewhere classified; I48.0 Paroxysmal atrial fibrillation; Z79.01 Long term (current) use of anticoagulants; Z95.2 Presence of prosthetic heart valve; Z95.810 Presence of automatic (implantable) cardiac defibrillator; Z99.81 Dependence on supplemental oxygen; Z88.8 Allergy status to other drugs, medicaments and biological substances; Z88.6 Allergy status to analgesic agent; Z79.899 Other long term (current) drug therapy; Z71.3 Dietary counseling and surveillance; Z68.32 Body mass index [BMI] 32.0-32.9, adult
CPT/HCPCS: 36415; 71045; 80048; 80053; 83735; 83880; 84484; 85025; 87426; 93005; 93306; 94640; 97162; 99285; J1650; J1885; J1940; J7030

== ENCOUNTER 2021-08-27 14:16 | Inpatient (IN) | payer OTHER ==
[~2021-08-27] VITALS: Ht 170.2 cm; Wt 93.0 kg
[~2021-08-27 14:16] MED LIST changes: -ALBU18HF2 IH; +CALC-1042 PO; -CALC-1098 PO; -CELE200C PO; +DICL100G31 TP; +DULO60CA64 PO; +ERGO1250 PO; +GABA-532 PO; -PANT40TA51 MT; -PNV1TABL50 MT; +POTA-205 PO; -POTA20TA82 PO; -PRED10TA PO; +PRED10TA23 PO; +SACU1TAB MT; +WARF-53 PO; -WARF4TAB40 PO; +WARF7.5T48 PO
[2021-08-27 15:25] LABS: HEMATOCRIT. 32.4 % (36.0-48.0); HEMOGLOBIN. 10.3 g/dL (12.0-16.0); MEAN CORPUSCULAR HEMOGLOBIN 29.5 pg (28.0-32.0); MEAN CORPUSCULAR VOLUME 92.9 fL (81.0-99.0); MEAN PLATELET VOLUME 10.2 fl (7.4-10.4); PLATELET 86 x1000/uL (130-400); RED BLOOD CELL COUNT 3.49 mill/uL (4.2-5.4); RED CELL DISTRIBUTION WIDTH 15.2 % (11.6-14.6)
[2021-08-27 15:31] LABS: CHLORIDE 100 mEq/L (98-107)
[2021-08-27 15:43] LABS: ATYPICAL LYMPHOCYTES 2
[2021-08-27 15:44] LABS: PLATELET ESTIMATE DECREASED
[2021-08-27] MEDS ORDERED: NOREPINEPHRINE 8MG/250ML PMX 250 ML IV ONE (19:00)
[2021-08-27] MEDS: ACETAMINOPHEN 325MG TABLET PO PRN (19:30)
[2021-08-28] VITALS (9 sets, daily range): BP systolic 91–117; BP diastolic 50–62
[2021-08-28] MEDS: ACETAMINOPHEN 325MG TABLET PO PRN ×2 (05:45→15:57)
[2021-08-28] MEDS ORDERED: PREG75CA PO (09:51)
[2021-08-28] MEDS ORDERED: SACU1TAB PO (09:51)
[2021-08-28] MEDS ORDERED: MACI10TA2 PO (09:51)
[2021-08-28] MEDS ORDERED: FUROSEMIDE 40MG/4ML VIAL IVP SCH (10:45)
[2021-08-28] MEDS ORDERED: DULOXETINE HCL 30MG DR CAPSULE PO SCH (10:45)
[2021-08-28] MEDS ORDERED: ONDANSETRON HCL 4MG/2ML INJ IV PRN (10:45)
[2021-08-28] MEDS ORDERED: IPRATROPIUM/ALBUTEROL 0.5-3(2.5)MG/3ML NEB HHN PRN (12:00)
[2021-08-28] MEDS: CARVEDILOL 6.25 MG TABLET PO SCH ×2 (12:30→20:49)
[2021-08-28 13:12] LABS: BG BASE EXCESS 9.6 mmol/L (-2.0-2.0); BG CARBOXYHEMOGLOBIN 0.1 % (0.5-1.5); BG DEOXYHEMOGLOBIN 2.4 % (0.0-5.0); BG FRACTION INSPIRED OXYGEN 32; BG HCO3 ACT 36.7 mmol/L (22.0-26.0); BG METHEMOGLOBIN 0.3 % (0.0-1.5); BG OXYGEN SATURATION 97.6 % (92.0-98.5); BG OXYHEMOGLOBIN 97.2 % (94.0-97.0); BG PCO2 63.5 mmHg (35.0-45.0); BG PO2 104.7 mmHg (75.0-100.0); BG SAMPLE SITE RIGHT RADIAL; BG TOTAL HEMOGLOBIN 11.5 g/dL (12.0-18.0); BG VENT MODE NASAL CANNULA
[2021-08-28] MEDS: SACUBITRIL/VALSARTAN 24MG/26MG TABLET PO SCH (17:00)
[2021-08-28 17:51] LABS: HEMATOCRIT. 31.7 % (36.0-48.0); HEMOGLOBIN. 10.2 g/dL (12.0-16.0); MEAN CORPUSCULAR HEMOGLOBIN 29.6 pg (28.0-32.0); MEAN CORPUSCULAR VOLUME 92.2 fL (81.0-99.0); MEAN PLATELET VOLUME 10.2 fl (7.4-10.4); PLATELET 83 x1000/uL (130-400); RED BLOOD CELL COUNT 3.44 mill/uL (4.2-5.4); RED CELL DISTRIBUTION WIDTH 14.5 % (11.6-14.6)
[2021-08-28 18:00] LABS: INR 1.7; PROTHROMBIN TIME 17.2 sec (9.6-11.0)
[2021-08-28] MEDS ORDERED: WARFARIN SODIUM 5MG TABLET PO SCH (19:00)
[2021-08-28 19:02] LABS: PLATELET ESTIMATE DECREASED
[2021-08-28] MEDS: BUDESONIDE 0.5MG/2ML NEB HHN SCH (20:11)
[2021-08-28] MEDS: IPRATROPIUM/ALBUTEROL 0.5-3(2.5)MG/3ML NEB HHN SCH (20:11)
[2021-08-29] VITALS (12 sets, daily range): BP systolic 93–117; BP diastolic 46–73
[2021-08-29] MEDS: IPRATROPIUM/ALBUTEROL 0.5-3(2.5)MG/3ML NEB HHN SCH ×4 (01:51→20:44)
[2021-08-29 06:30] LABS: HEMATOCRIT 30.5 % (36.0-48.0); HEMOGLOBIN 9.9 g/dL (12.0-16.0); MEAN CORPUSCULAR HEMOGLOBIN 29.9 pg (28.0-32.0); PLATELET 85 x1000/uL (130-400); RED BLOOD CELL COUNT 3.31 mill/uL (4.2-5.4); RED CELL DISTRIBUTION WIDTH 14.2 % (11.6-14.6)
[2021-08-29 06:43] LABS: INR 1.6; PROTHROMBIN TIME 16.3 sec (9.6-11.0)
[2021-08-29] MEDS: CARVEDILOL 6.25 MG TABLET PO SCH ×2 (09:00→20:43)
[2021-08-29] MEDS ORDERED: DULOXETINE HCL 60MG DR CAPSULE PO SCH (09:00)
[2021-08-29] MEDS: SACUBITRIL/VALSARTAN 24MG/26MG TABLET PO SCH ×3 (09:03→16:37)
[2021-08-29] MEDS: FUROSEMIDE 40MG/4ML VIAL IVP SCH (09:08)
[2021-08-29] MEDS: BUDESONIDE 0.5MG/2ML NEB HHN SCH ×2 (09:27→20:44)
[2021-08-29] MEDS ORDERED: ENOXAPARIN 40MG/0.4ML SYR SUBCUT NR (10:45)
[2021-08-29] MEDS: PREDNISONE 10MG TABLET PO SCH (14:12)
[2021-08-29] MEDS: THEOPHYLLINE ANHYDROUS 80 MG/15 ML 120ML PO SCH ×2 (15:00→20:42)
[2021-08-29] MEDS ORDERED: WARFARIN SODIUM 7.5MG TABLET PO SCH (18:00)
[2021-08-30] VITALS (10 sets, daily range): BP systolic 95–136; BP diastolic 44–65
[2021-08-30] MEDS: IPRATROPIUM/ALBUTEROL 0.5-3(2.5)MG/3ML NEB HHN SCH ×4 (02:23→21:03)
[2021-08-30] MEDS: THEOPHYLLINE ANHYDROUS 80 MG/15 ML 120ML PO SCH ×3 (05:47→22:32)
[2021-08-30 08:09] LABS: HEMATOCRIT 30.3 % (36.0-48.0); MEAN CORPUSCULAR HEMOGLOBIN 30.3 pg (28.0-32.0); MEAN CORPUSCULAR VOLUME 91.7 fL (81.0-99.0); PLATELET 85 x1000/uL (130-400); RED CELL DISTRIBUTION WIDTH 14.1 % (11.6-14.6)
[2021-08-30] MEDS: BUDESONIDE 0.5MG/2ML NEB HHN SCH ×2 (08:16→21:03)
[2021-08-30 08:40] LABS: INR 1.4; PROTHROMBIN TIME 15.1 sec (9.6-11.0)
[2021-08-30] MEDS: CARVEDILOL 6.25 MG TABLET PO SCH ×2 (09:44→20:22)
[2021-08-30] MEDS: PREDNISONE 10MG TABLET PO SCH (09:44)
[2021-08-30] MEDS: FUROSEMIDE 40MG/4ML VIAL IVP SCH (09:44)
[2021-08-30] MEDS: SACUBITRIL/VALSARTAN 24MG/26MG TABLET PO SCH ×2 (09:52→16:44)
[2021-08-30] MEDS ORDERED: ENOXAPARIN 60MG/0.6ML SYR SUBCUT NR (11:00)
[2021-08-30] MEDS ORDERED: WARFARIN SODIUM 5MG TABLET PO NR (18:00)
[2021-08-31] VITALS: BP 98/50
[2021-08-31] MEDS: IPRATROPIUM/ALBUTEROL 0.5-3(2.5)MG/3ML NEB HHN SCH ×3 (02:20→13:23)
[2021-08-31 04:00] VITALS: BP 96/46
[2021-08-31] MEDS: THEOPHYLLINE ANHYDROUS 80 MG/15 ML 120ML PO SCH ×2 (05:48→13:10)
[2021-08-31 05:56] LABS: HEMATOCRIT. 29.9 % (36.0-48.0); HEMOGLOBIN. 9.9 g/dL (12.0-16.0); MEAN CORPUSCULAR HEMOGLOBIN 29.9 pg (28.0-32.0); MEAN CORPUSCULAR VOLUME 90.5 fL (81.0-99.0); MEAN PLATELET VOLUME 10.5 fl (7.4-10.4); PLATELET 91 x1000/uL (130-400); RED BLOOD CELL COUNT 3.31 mill/uL (4.2-5.4)
[2021-08-31 06:07] LABS: INR 1.7; PROTHROMBIN TIME 17.2 sec (9.6-11.0)
[2021-08-31 08:00] VITALS: BP 97/43
[2021-08-31] MEDS: BUDESONIDE 0.5MG/2ML NEB HHN SCH (08:24)
[2021-08-31] MEDS: CARVEDILOL 6.25 MG TABLET PO SCH (09:00)
[2021-08-31] MEDS ORDERED: POTASSIUM CHLORIDE 20MEQ TABLET SR PO SCH (09:00)
[2021-08-31] MEDS: SACUBITRIL/VALSARTAN 24MG/26MG TABLET PO SCH (09:42)
[2021-08-31] MEDS: PREDNISONE 10MG TABLET PO SCH (09:45)
[2021-08-31] MEDS: FUROSEMIDE 40MG/4ML VIAL IVP SCH (09:50)
[2021-08-31 10:52] LABS: PLATELET ESTIMATE DECREASED
[2021-08-31 12:00] VITALS: BP 125/50
[2021-08-31] MEDS ORDERED: ENOXAPARIN 100MG/ML SYR SUBCUT SCH (12:00)
[2021-08-31 12:46] VITALS: BP 125/50
[2021-08-31] MEDS ORDERED: WARFARIN SODIUM 10MG TABLET PO NR (13:00)
[2021-08-31] MEDS ORDERED: HYDROCORTISONE 2.5% CREAM 20GM TOP SCH (14:00)
== END 2021-08-31 14:17 | disposition home or self-care (01) | DRG 133 ==
LOC: ER 14:16 → MICUSO 16:27 → EDBEDREQ 16:34 → EDBEDREQSVC 18:52 → 5EST 08-28 01:37 → 6WST 08-30 16:15
PROVIDERS: ADMIT Internal Medicine; ATTEND Internal Medicine
DX: J96.21 Acute and chronic respiratory failure with hypoxia (principal); N17.0 Acute kidney failure with tubular necrosis; I50.33 Acute on chronic diastolic (congestive) heart failure; D61.818 Other pancytopenia; E44.1 Mild protein-calorie malnutrition; J44.1 Chronic obstructive pulmonary disease with (acute) exacerbation; D64.9 Anemia, unspecified; D69.6 Thrombocytopenia, unspecified; N18.9 Chronic kidney disease, unspecified; I13.0 Hypertensive heart and chronic kidney disease with heart failure and stage 1 through stage 4 chronic kidney disease, or unspecified chronic kidney disease; I27.20 Pulmonary hypertension, unspecified; I48.91 Unspecified atrial fibrillation; E66.2 Morbid (severe) obesity with alveolar hypoventilation; E78.5 Hyperlipidemia, unspecified; I42.0 Dilated cardiomyopathy; R07.9 Chest pain, unspecified; Z95.810 Presence of automatic (implantable) cardiac defibrillator; Z68.32 Body mass index [BMI] 32.0-32.9, adult; Z79.899 Other long term (current) drug therapy; Z88.8 Allergy status to other drugs, medicaments and biological substances; Z95.2 Presence of prosthetic heart valve; Z79.01 Long term (current) use of anticoagulants; Z99.81 Dependence on supplemental oxygen; Z95.1 Presence of aortocoronary bypass graft
CPT/HCPCS: 36415; 36600; 71045; 71250; 78582; 80048; 80053; 82375; 82805; 83605; 83880; 84484; 85025; 85027; 86038; 93005; 94003; 94640; 94664; 99285; A9558; J1650; J1940; J3490; J7512; J7626

== ENCOUNTER 2021-09-30 17:54 | Inpatient (IN) | payer OTHER ==
[~2021-09-30] VITALS: Ht 167.6 cm; Wt 87.6 kg
[~2021-09-30 17:54] MED LIST changes: +PREG75CA PO; -SACU1TAB MT; +SACU1TAB PO
[2021-09-30] MEDS ORDERED: IPRATROPIUM BROMIDE (0.02%) 0.5MG/2.5ML NEB HHN STA (21:54)
[2021-09-30] MEDS ORDERED: METHYLPREDNISOLONE SOD SUCC 125 MG/2 ML VIAL IV STA (21:54)
[2021-09-30] MEDS ORDERED: ASPIRIN 81MG TABLET PO ONE (22:00)
[2021-09-30] MEDS ORDERED: MAGNESIUM 2 G PREMIX 50 ML IV ONE (22:00)
[2021-09-30] MEDS: ALBUTEROL (0.083%) 2.5MG/3ML NEB HHN SCH ×3 (22:25→23:05)
[2021-09-30 22:32] LABS: HEMATOCRIT. 35.8 % (36.0-48.0); HEMOGLOBIN. 11.5 g/dL (12.0-16.0); MEAN CORPUSCULAR HEMOGLOBIN 29.2 pg (28.0-32.0); MEAN CORPUSCULAR VOLUME 90.7 fL (81.0-99.0); MEAN PLATELET VOLUME 10.3 fl (7.4-10.4); PLATELET 87 x1000/uL (130-400); RED BLOOD CELL COUNT 3.94 mill/uL (4.2-5.4)
[2021-09-30 22:34] LABS: CHLORIDE 96 mEq/L (98-107)
[2021-09-30 22:38] LABS: INR 3.7; PARTIAL THROMBOPLASTIN TIME 57.1 sec (23.4-31.0); PROTHROMBIN TIME 35.4 sec (9.6-11.0)
[2021-09-30 23:05] LABS: PLATELET ESTIMATE DECREASED
[2021-09-30] MEDS ORDERED: FUROSEMIDE 20MG/2ML VIAL IVP ONE (23:45)
[2021-10-01] MEDS: PROMETHAZINE/DEXTROMETHORPHAN 6.25-15MG/5ML BOTTLE 120ML PO PRN ×2 (04:58→15:33)
[2021-10-01] MEDS ORDERED: ACETAMINOPHEN 325MG TABLET PO PRN (08:30)
[2021-10-01] MEDS ORDERED: ONDANSETRON HCL 4MG/2ML INJ IV PRN (08:30)
[2021-10-01] MEDS: DEXAMETHASONE 6MG TABLET PO SCH (09:31)
[2021-10-01 10:26] LABS: BG BASE EXCESS 9.2 mmol/L (-2.0-2.0); BG CARBOXYHEMOGLOBIN 0.3 % (0.5-1.5); BG DEOXYHEMOGLOBIN 1.3 % (0.0-5.0); BG FRACTION INSPIRED OXYGEN 32; BG HCO3 ACT 34.7 mmol/L (22.0-26.0); BG METHEMOGLOBIN 0.5 % (0.0-1.5); BG OXYGEN SATURATION 98.7 % (92.0-98.5); BG OXYHEMOGLOBIN 97.9 % (94.0-97.0); BG PCO2 51.1 mmHg (35.0-45.0); BG PO2 146.4 mmHg (75.0-100.0); BG SAMPLE SITE RIGHT BRACHIAL; BG TOTAL HEMOGLOBIN 12.8 g/dL (12.0-18.0); BG VENT MODE NASAL CANNULA
[2021-10-01] MEDS ORDERED: NON FORMULARY PATIENT HOME MED XX SCH (10:30)
[2021-10-01] MEDS ORDERED: SACUBITRIL/VALSARTAN 49MG/51MG TABLET PO SCH (11:30)
[2021-10-01] MEDS: BENZONATATE 100MG CAPSULE PO PRN ×2 (12:07→22:54)
[2021-10-01 12:30] VITALS: BP 118/61
[2021-10-01 13:00] VITALS: BP 114/61
[2021-10-01] MEDS: SPIRONOLACTONE 25MG TABLET PO SCH (14:07)
[2021-10-01] MEDS: ALBUTEROL 6.7GM HFA INHALER ORI SCH ×3 (15:33→22:54)
[2021-10-01] MEDS ORDERED: COR12 MT (15:49)
[2021-10-01] MEDS ORDERED: PANT40TA51 PO (15:49)
[2021-10-01 16:00] VITALS: BP 104/50
[2021-10-01 18:03] VITALS: BP 111/62
[2021-10-01] MEDS: FUROSEMIDE 40MG TABLET PO SCH (18:06)
[2021-10-01 20:00] VITALS: BP 115/59
[2021-10-01] MEDS: SACUBITRIL/VALSARTAN 49MG/51MG TABLET PO SCH (20:19)
[2021-10-01] MEDS: ZOLPIDEM TARTRATE 5MG TABLET PO PRN (22:57)
[2021-10-02] VITALS: BP 91/48
[2021-10-02 04:00] VITALS: BP 102/57
[2021-10-02] MEDS: FUROSEMIDE 40MG TABLET PO SCH ×2 (06:00→16:43)
[2021-10-02] MEDS: ALBUTEROL 6.7GM HFA INHALER ORI SCH ×4 (06:00→23:00)
[2021-10-02 06:47] LABS: HEMATOCRIT. 33.8 % (36.0-48.0); HEMOGLOBIN. 11.3 g/dL (12.0-16.0); MEAN CORPUSCULAR HEMOGLOBIN 29.5 pg (28.0-32.0); MEAN CORPUSCULAR VOLUME 88.6 fL (81.0-99.0); MEAN PLATELET VOLUME 10.3 fl (7.4-10.4); PLATELET 95 x1000/uL (130-400); RED BLOOD CELL COUNT 3.82 mill/uL (4.2-5.4); RED CELL DISTRIBUTION WIDTH 13.7 % (11.6-14.6)
[2021-10-02 06:59] LABS: PROTHROMBIN TIME 46.6 sec (9.6-11.0)
[2021-10-02 07:11] LABS: INR 4.9
[2021-10-02 08:00] VITALS: BP 104/59
[2021-10-02] MEDS: SPIRONOLACTONE 25MG TABLET PO SCH (08:26)
[2021-10-02] MEDS: DEXAMETHASONE 6MG TABLET PO SCH ×2 (08:26→16:43)
[2021-10-02] MEDS: BENZONATATE 100MG CAPSULE PO PRN ×2 (08:27→22:51)
[2021-10-02] MEDS: SACUBITRIL/VALSARTAN 49MG/51MG TABLET PO SCH ×2 (08:27→20:09)
[2021-10-02] MEDS: PROMETHAZINE/DEXTROMETHORPHAN 6.25-15MG/5ML BOTTLE 120ML PO PRN ×2 (10:23)
[2021-10-02] MEDS ORDERED: CEFTRIAXONE 1 G PREMIX 50 ML IV SCH (11:15)
[2021-10-02 12:00] VITALS: BP 97/55
[2021-10-02] MEDS: AZITHROMYCIN 500 MG TABLET PO SCH (12:20)
[2021-10-02] MEDS: CEFTRIAXONE 1,000 MG in DEXTROSE 5% WATER 50 ML IV SCH (13:56)
[2021-10-02] MEDS: GUAIFENESIN/CODEINE 200-20MG/10ML UDC PO PRN ×2 (14:16→20:09)
[2021-10-02 16:00] VITALS: BP 90/50
[2021-10-02 16:20] LABS: PLATELET ESTIMATE DECREASED
[2021-10-02 20:00] VITALS: BP 95/52
[2021-10-02] MEDS: ZOLPIDEM TARTRATE 5MG TABLET PO PRN (22:49)
[2021-10-03] VITALS: BP 90/51
[2021-10-03 04:00] VITALS: BP 97/53
[2021-10-03] MEDS: FUROSEMIDE 40MG TABLET PO SCH ×2 (05:45→17:29)
[2021-10-03] MEDS: GUAIFENESIN/CODEINE 200-20MG/10ML UDC PO PRN ×2 (05:45→10:24)
[2021-10-03] MEDS: ALBUTEROL 6.7GM HFA INHALER ORI SCH ×3 (05:46→23:13)
[2021-10-03] MEDS: BENZONATATE 100MG CAPSULE PO PRN ×2 (05:52→23:03)
[2021-10-03 07:38] LABS: INR 3.1; PROTHROMBIN TIME 30.7 sec (9.6-11.0)
[2021-10-03 08:00] VITALS: BP 93/48
[2021-10-03] MEDS: SPIRONOLACTONE 25MG TABLET PO SCH (09:00)
[2021-10-03] MEDS: SACUBITRIL/VALSARTAN 49MG/51MG TABLET PO SCH ×2 (09:17→21:00)
[2021-10-03] MEDS: DEXAMETHASONE 6MG TABLET PO SCH ×2 (09:18→17:29)
[2021-10-03] MEDS: AZITHROMYCIN 500 MG TABLET PO SCH (09:18)
[2021-10-03] MEDS: CEFTRIAXONE 1,000 MG in DEXTROSE 5% WATER 50 ML IV SCH (11:50)
[2021-10-03 12:00] VITALS: BP 94/49
[2021-10-03 16:00] VITALS: BP 104/54
[2021-10-03] MEDS ORDERED: WARFARIN SODIUM 5MG TABLET PO NR (18:00)
[2021-10-03 20:00] VITALS: BP 86/40
[2021-10-04] VITALS: BP 93/54
[2021-10-04 04:00] VITALS: BP 106/59
[2021-10-04] MEDS: FUROSEMIDE 40MG TABLET PO SCH (06:00)
[2021-10-04] MEDS: ALBUTEROL 6.7GM HFA INHALER ORI SCH ×3 (06:00→12:00)
[2021-10-04] MEDS: BENZONATATE 100MG CAPSULE PO PRN (06:14)
[2021-10-04 06:41] LABS: INR 2.5; PROTHROMBIN TIME 25.1 sec (9.6-11.0)
[2021-10-04 06:58] LABS: BASOPHILS % 0.1 % (0.0-2.0); HEMATOCRIT. 34.7 % (36.0-48.0); HEMOGLOBIN. 11.7 g/dL (12.0-16.0); LYMPHOCYTES % 10.6 % (20.0-50.0); MEAN CORPUSCULAR HEMOGLOBIN 29.3 pg (28.0-32.0); MEAN CORPUSCULAR VOLUME 86.9 fL (81.0-99.0); MEAN PLATELET VOLUME 9.9 fl (7.4-10.4); MONOCYTES % 7.5 % (2.0-8.0); NEUTROPHILS % 81.8 % (40.0-76.0); PLATELET 126 x1000/uL (130-400); RED BLOOD CELL COUNT 3.99 mill/uL (4.2-5.4); RED CELL DISTRIBUTION WIDTH 13.6 % (11.6-14.6)
[2021-10-04 08:00] VITALS: BP 111/64
[2021-10-04] MEDS ORDERED: POTASSIUM CHLORIDE 20MEQ TABLET SR PO NR (08:15)
[2021-10-04] MEDS ORDERED: GUAI5SYR3 MT ×2 (09:17→15:33)
[2021-10-04] MEDS: GUAIFENESIN/CODEINE 200-20MG/10ML UDC PO PRN (09:24)
[2021-10-04] MEDS: SACUBITRIL/VALSARTAN 49MG/51MG TABLET PO SCH (09:25)
[2021-10-04] MEDS: AZITHROMYCIN 500 MG TABLET PO SCH (09:25)
[2021-10-04] MEDS: DEXAMETHASONE 6MG TABLET PO SCH (09:25)
[2021-10-04] MEDS: SPIRONOLACTONE 25MG TABLET PO SCH (09:25)
[2021-10-04] MEDS ORDERED: AZIT500T8 MT (11:46)
[2021-10-04] MEDS ORDERED: TRAZ-251 MT (11:46)
[2021-10-04 12:00] VITALS: BP 105/56
[2021-10-04] MEDS: CEFTRIAXONE 1,000 MG in DEXTROSE 5% WATER 50 ML IV SCH (14:27)
[2021-10-04 14:34] VITALS: BP 105/56
[2021-10-04] MEDS ORDERED: WARFARIN SODIUM 5MG TABLET PO NR (18:00)
[2021-10-05] MEDS ORDERED: TUSSL MT (10:47)
== END 2021-10-04 16:15 | disposition home or self-care (01) | DRG 720 ==
LOC: ER 17:54 → MICUSO 23:47 → EDBEDREQSVC 10-01 05:47 → 7EST 10-01 12:01
PROVIDERS: ADMIT Internal Medicine; ATTEND Internal Medicine
PROC: 5A09357 Assistance with Respiratory Ventilation, Less than 24 Consecutive Hours, Continuous Positive Airway Pressure (ICD-10-PCS; principal; 2021-09-30)
PROC: 5A09357 Assistance with Respiratory Ventilation, Less than 24 Consecutive Hours, Continuous Positive Airway Pressure (ICD-10-PCS; 2021-10-01)
DX: A41.89 Other specified sepsis (principal); J96.21 Acute and chronic respiratory failure with hypoxia; I50.33 Acute on chronic diastolic (congestive) heart failure; U07.1 COVID-19; D61.818 Other pancytopenia; N17.9 Acute kidney failure, unspecified; D68.9 Coagulation defect, unspecified; I27.20 Pulmonary hypertension, unspecified; I13.0 Hypertensive heart and chronic kidney disease with heart failure and stage 1 through stage 4 chronic kidney disease, or unspecified chronic kidney disease; I25.10 Atherosclerotic heart disease of native coronary artery without angina pectoris; I48.0 Paroxysmal atrial fibrillation; J20.8 Acute bronchitis due to other specified organisms; N18.9 Chronic kidney disease, unspecified; Z79.01 Long term (current) use of anticoagulants; J44.0 Chronic obstructive pulmonary disease with (acute) lower respiratory infection; R19.7 Diarrhea, unspecified; Z82.49 Family history of ischemic heart disease and other diseases of the circulatory system; Z95.2 Presence of prosthetic heart valve; Z95.810 Presence of automatic (implantable) cardiac defibrillator; Z99.81 Dependence on supplemental oxygen; Z88.6 Allergy status to analgesic agent; Z88.8 Allergy status to other drugs, medicaments and biological substances
CPT/HCPCS: 36415; 36600; 71045; 80048; 80053; 82375; 82805; 83605; 83735; 83880; 84484; 85025; 87426; 93005; 94640; 94660; 97116; 97161; 97162; 99291; C9803; J0696; J1940; J2405; J3475; J7060